=== PATIENT | female | born 1945 | race Caucasian/White ===

== ENCOUNTER 2017-12-10 09:49 | Emergency (ER) | payer MEDICARE, BC ==
[~2017-12-10] VITALS: Ht 162.6 cm; Wt 87.3 kg
[2017-12-10 11:00] LABS: INTERNATIONAL NORMALIZED RATIO 0.97 (0.93-1.1)
[2017-12-10 11:01] LABS: BASOPHILS # (AUTO) 0.02 x10^3/uL (0-0.1); BASOPHILS % (AUTO) 0 % (0-1); EOSINOPHILS # (AUTO) 0.09 x10^3/uL (0-0.4); EOSINOPHILS % (AUTO) 1 % (1-7); LYMPHOCYTES # (AUTO) 1.59 x10^3/uL (1-3.4); LYMPHOCYTES % (AUTO) 16 % (22-44); MD NO; MEAN CORPUSCULAR HGB CONC 34.2 g/dL (32.4-35.8); MEAN CORPUSCULAR VOLUME 90.4 fL (80-100); MEAN PLATELET VOLUME 8.7 fL (7.4-10.4); MONOCYTES # (AUTO) 0.72 x10^3/uL (0.2-0.8); MONOCYTES % (AUTO) 7 % (2-9); NEUTROPHILS # (AUTO) 7.28 x10^3/uL (1.8-6.8); NEUTROPHILS % (AUTO) 75 % (42-75); PLATELET COUNT 219 x10^3/uL (130-400); RED BLOOD COUNT 4.65 x10^6/uL (3.82-5.3)
[2017-12-10 11:04] LABS: ALBUMIN 3.2 g/dL (3.4-5.0); ANION GAP 7 mmol/L (5-15); CALCIUM 8.7 mg/dL (8.5-10.1); CHLORIDE 110 mmol/L (98-107)
[2017-12-10] MEDS ORDERED: OMEPRAZOLE PO (11:07)
[2017-12-10] MEDS ORDERED: MAGNESIUM/ZINC PO (11:07)
[2017-12-10 11:08] LABS: CULTURE INDICATED? YES; MICROSCOPIC INDICATED
[2017-12-10 11:08] LABS: ALANINE AMINOTRANSFERASE 22 U/L (12-78); ALKALINE PHOSPHATASE 90 U/L (45-117); BILIRUBIN,TOTAL 0.8 mg/dL (0.2-1.0); CREATININE 0.86 mg/dL (0.55-1.02); TOTAL PROTEIN 7.4 g/dL (6.4-8.2)
[2017-12-10 12:20] VITALS: BP 121/71
== END 2017-12-10 12:22 | disposition home or self-care (01) ==
LOC: ED 12:10
DX: R10.13 Epigastric pain (principal); N30.00 Acute cystitis without hematuria; K21.9 Gastro-esophageal reflux disease without esophagitis; Z98.51 Tubal ligation status
CPT/HCPCS: 36415; 76700; 80053; 81001; 85025; 85610; 87086; 93005; 99285

== ENCOUNTER → 2018-02-10 | Outpatient (CLI) | payer MEDICARE, BC ==
[~2018-02-10] MED LIST: MAGNESIUM/ZINC PO; OMEPRAZOLE PO
== END | disposition home or self-care (01) ==
LOC: RAD 11:25
PROVIDERS: ATTEND Internal Medicine
DX: R10.10 Upper abdominal pain, unspecified (principal)
CPT/HCPCS: 78227; A9537

== ENCOUNTER → 2018-07-04 | Outpatient (CLI) | payer MEDICARE, BC ==
[~2018-07-04] MED LIST changes: +REGADENOSON 0.4 MG/5 ML SYRINGE ONE
== END | disposition home or self-care (01) ==
LOC: CFH 07:48
PROVIDERS: ATTEND Internal Medicine Cardiovascular Disease
DX: I08.1 Rheumatic disorders of both mitral and tricuspid valves (principal); I83.93 Asymptomatic varicose veins of bilateral lower extremities
CPT/HCPCS: 78452; 93017; 93306; 93970; A9502; J2785

== ENCOUNTER 2018-12-05 10:12 | Outpatient (CLI) | payer MEDICARE, BC | END 2018-12-05 23:59 | disposition home or self-care (01) | LOC: CFH 10:12 | PROVIDERS: ATTEND Nurse Practitioner Family | DX: M81.0 Age-related osteoporosis without current pathological fracture (principal); N95.9 Unspecified menopausal and perimenopausal disorder | CPT/HCPCS: 77080 ==